=== PATIENT | female | born 1985 | race Caucasian/White ===

== ENCOUNTER 2022-11-21 07:50 | Observation (INO) ==
--- NOTE | 2022-11-18 09:46 | Anesthesiology Consultation ---
Date of Service November 18, 2022 Assessment & Plan (1) Encounter for pre-operative examination: - Check test AM DOS - COVID screening: Per assessment on 11/12: No known COVID-19 positive contacts or current COVID-19 related symptoms. Travel screen negative. Patient vaccinated. At surgeon discretion if preop Covid testing being done. Chart Review Chart Review: Acceptable Risk for Surgery and Patient NOT seen in Pre Admission Testing History Surgery Operation Date: 11/21/22 07:15 Proposed Procedures p Bilateral Mastectomies - Perry Thompson MD s Bilateral First Stage Immediate Reconstruction with Tissue Letter Of Credit Clerk and Acellular Dermal Matrix, Bilateral Alloderm - Patricia Mills MD Height/Weight Height: 5 ft 7.5 in Weight: 77.111 kg Allergies Allergy/AdvReac Type Severity Reaction Status Date / Time aluminum Allergy Mild itching Verified 11/12/22 11:14 nickel Allergy Mild Rash Verified 11/12/22 11:14 Medications Home Medications Medication Instructions Recorded Confirmed Last Taken cephalexin 500 mg capsule 500 mg PO TID #14 caps 11/01/22 11/01/22 Unknown oxycodone-acetaminophen 5 mg-325 1 tab PO Q4H PRN pain #18 tabs 11/01/22 11/01/22 Unknown mg tablet (Endocet) Past Medical History Medical History History of COVID-19 05/2020- loss of smell, "mild cold" symptoms > resolved Metastatic breast cancer Right, diagnosis 04/2022 Port-A-Cath in place placed 05/2022, [facility] Past Family History Family History Other No family history of adverse response to anesthesia Past Surgical History Surgical History History of breast biopsy History of lymph node biopsy History of removal of cyst x2 History of wisdom tooth extraction Hx of lymph node excision Social History Smoking Status: Former smoker tobacco type: cigarettes Do You Dip or Chew Tobacco: No Smoking End Date: years ago Hx Alcohol Use: Yes alcohol intake frequency: holidays/special occasions only Hx Substance Use: No substance use type: does not use Testing Laboratory Results 11/15/22 WBC 4.00 H/H 12.7/37.9 PLATELETS 212 SODIUM 140 POTASSIUM 4.4 CHLORIDE 104 CO2 27 BUN 18 CREATININE 0.8 GLUCOSE 96 PT 12.9 INR 1.0 Chest X-Ray Date: 05/13/22 Status post placement of a left subclavian Vnadfc-d-Fxvz catheter distal tip projected over the mid SVC. No postprocedural pneumothorax. Echocardiogram Date: 05/09/22 LVEF 64%. LV wall motion is normal. No significant valvular disease.
[~2022-11-21 07:50] MED LIST: BUPIVACAINE 0.25% PF 30 ML VIAL ONE; GENTAMICIN SULFATE 40 MG/ML 2 ML VIAL ONE; HYDROmorphone INJ 2 MG/ML SYR/VIAL ONE; LIDOCAINE 1%/EPINEPHRINE 1:100,000 20 ML VIAL ONE; LIDOCAINE 2% 2 ML VIAL/AMP(20MG/ML) INFIL ONE; LR 15ML/HR IV SCH; MIDAZOLAM HCL 1 MG/ML 2ML VIAL ONE; PROPOFOL IV EMULSION 10 MG/ML 100 ML VIAL IV ONE; PROPOFOL IV EMULSION 10 MG/ML 20 ML VIAL IV ONE; SODIUM CHLORIDE 0.9% PF INJ 10 ML VIAL ONE; SUCCINYLCHOLINE 100MG/5ML SYR IV ONE; ceFAZolin 330 MG/ML 1 GM VIAL ONE
--- NOTE | 2022-11-21 09:09 | History & Physical Bridge Note ---
Date of Service November 21, 2022 History & Physical Bridge Note I have examined the patient, reviewed the History & Physical and in the interval since the performance of the History & Physical I have noted the following changes of clinical significance: no changes noted
[2022-11-21] MEDS ORDERED: BUPIVACAINE/EPINEPHRINE 0.5% MPF 1:200,000 30 ML VIAL ONE (09:23)
[2022-11-21] MEDS ORDERED: BUPIVACAINE LIPOSOME 1.3% 266 MG/20 ML VIAL ONE (09:24)
[2022-11-21] MEDS ORDERED: METHYLENE BLUE 0.5% 10 ML VIAL ONE (09:24)
[2022-11-21] MEDS ORDERED: ATROPINE SULFATE 0.1 MG/ML 10ML SYR IV PRN (09:29)
[2022-11-21] MEDS ORDERED: PROMETHAZINE HCL 6.25 MG in SODIUM CHLORIDE 0.9% 50 ML IV PRN (09:29)
[2022-11-21] MEDS ORDERED: ONDANSETRON INJ 2 MG/ML 2 ML VIAL IV PRN ×2 (09:29→17:52)
[2022-11-21] MEDS ORDERED: HYDROmorphone INJ 1 MG/ML SYRINGE IV PRN (09:31)
[2022-11-21] MEDS: ENOXAPARIN INJ 30 MG/0.3 ML SYR SQ SCH (09:51)
[2022-11-21] MEDS: ceFAZolin 2000MG 2,000 MG/15 ML SYR IV SCH ×3 (10:04→21:27)
[2022-11-21] MEDS ORDERED: KETAMINE 50 MG/5 ML SYRINGE ONE (10:13)
[2022-11-21] MEDS ORDERED: BUPIVACAINE 0.5 % 5 MG/1 ML MPF 30ML VIAL ONE (10:28)
[2022-11-21] MEDS ORDERED: ROCURONIUM BROMIDE 10 MG/ML 5 ML VIAL IV ONE ×2 (10:34→13:26)
[2022-11-21] MEDS ORDERED: ePHEDrine sulfate 50 MG/ML AMP ONE (11:11)
--- NOTE | 2022-11-21 11:20 | Nuclear Medicine Report ---
LYMPHOSCINTIGRAPHY CLINICAL HISTORY: Right-sided breast cancer. PROCEDURE: Using standard sterile technique, 4 intradermal and one deep injection of 490.33 uCi of Ly mphoseek was placed in the right breast. The patient tolerated the procedure well. There were no imme diate complications. The patient was subsequently transported to the surgical suite. No imaging was o btained at the referring physician's request. IMPRESSION: Injection of Lymphoseek in the right breast. ACT 112: Negative or not required by law. Electronically signed by: John Puente M.D. 11/21/2022 11:18 AM
[2022-11-21] MEDS ORDERED: ceFAZolin 330 MG/ML 1 GM VIAL ONE (13:39)
--- NOTE | 2022-11-21 13:45 | Post Operative Brief Note ---
Immediate Post Op Note v1 Date of Surgery November 21, 2022 Pre & Post Diagnosis Operation Date: 11/21/22 10:00 Pre-Op Diagnosis: Right breast cancer with right axillary metastasis Post-Op Diagnosis: Right breast cancer with right axillary metastasis I identified the patient and participated in the time-out.: Yes Procedure Operation Date: 11/21/22 10:00 Actual Procedures p Bilateral Mastecomy and Right Axillary [place] Lymph Node Biopsy, SELINA Customer Relations Specialist Localized, Lymph Node Excision(Bilateral) - Perry Thompson MD s Bilateral First Stage Immediate Breast Reconstruction with Tissue Pneudraulic Systems Mechanic and Acellular Dermal Matrix(Bilateral) - Patricia Mills MD Surgeon Perry Thompson MD Broker Associate ROHIT Pardo assisted with tissue retraction, camera op, closure Estimated Blood Loss 15 Findings Consistent with Post-Op Diagnosis Drains Zepeda Catheter
--- NOTE | 2022-11-21 14:00 | Operative Report ---
Post Operative Report Pre & Post Diagnosis Operation Date: 11/21/22 10:00 Pre-Op Diagnosis: Right breast cancer with right axillary metastasis Post-Op Diagnosis: Right breast cancer with right axillary metastasis I identified the patient and participated in the time-out.: Yes Procedure Operation Date: 11/21/22 10:00 Actual Procedures p Bilateral Mastecomy and Right Axillary [place] Lymph Node Biopsy, SELINA Director Of Guidance Localized, Lymph Node Excision(Bilateral) - Perry Thompson MD s Bilateral First Stage Immediate Breast Reconstruction with Tissue Explosive Ordnance Handler and Acellular Dermal Matrix(Bilateral) - Patricia Mills MD Surgeon Perry Thompson MD Adon ROHIT Pardo assisted with tissue retraction, camera op, closure Estimated Blood Loss 15 Findings Consistent with Post-Op Diagnosis Right axillawire localization of prior biopsied node also appeared to be sentinel node; removed. Selina paper stacker localization of large level 2 right axillary node. Large mass right upper outer quadrant near axilla, completely resected with right mastectomy. Specimens 1. Left mastectomy 2. Right mastectomy 3. Right sentinel lymph node x1, hot and blue, wire within node 4. Right sentinel lymph node x2, blue 5. Right axillary level 2 lymph node, Selina Director Of Guidance localized Anesthesia Type General Complications No immediate complications Description of Procedure Patient taken to the operating room, placed supine on the operating table. A ti meout was performed, perioperative antibiotics were administered, SCD boots were placed. Subcutaneous Lovenox had been given in preoperative area. After adequate anesthesia and analgesia was obtained, Zepeda catheter was placed, and the patient was prepped and draped in the normal sterile fashion. 5 cc of methylene blue were injected around the right nipple areolar complex and was massaged into the breast. The incision lines had been drawn on the bilateral breast in the preoperative area. We began on the left side. Local anesthetic, a mix of half percent Marcaine, Exparel, and saline, was injected into the subcutaneous tissue of the skin of the left breast. Incision was made with 15 blade scalpel encompassing the incision that had been drawn. This included the nipple areolar complex. Dissection was taken down into the level of the breast tissue. Flaps were raised in a 360 degree fashion using a traction countertraction technique. This was done with the electrocautery. Larger blood vessels were taken with the LigaSure device. 1 liberal arts and humanities chair was clamped and tied with a 3-0 silk suture. All the breast tissue was removed from the overlying subcutaneous tissue. The extent of the dissection was superiorly to the clavicle, medially to the sternum, inferiorly to the fascia of the rectus abdominis, and laterally to the axillary fat pad. The breast was then removed from the underlying pectoralis major muscle with the electrocautery, taking care to remove the fascia of the pectoralis muscle with it. The mastectomy specimen was oriented with sutures and ink and was sent off the field. The flaps were then inspected. Some additional breast tissue was removed on the upper flap and an area of thicker tissue. This was sent off with the specimen. More of the local anesthetic mix was injected into the pectoralis muscle. Attention was turned to hemostasis, which was excellent. Wet lap sponges were placed in the wound, and attention was turned to the right side. Attention was then turned to the right side. The local anesthetic mix was injected into the subcutaneous tissue of the skin of the right breast. Again incision was made with 15 blade scalpel following lines of the previously drawn incision. Again this included the nipple areolar complex as well as the skin directly overlying the firm mass in the upper outer quadrant. The level of the breast tissue was obtained. Using a traction, countertraction technique and the Bovie electrocautery, flaps were raised in a 360 degree fashion. Again, larger blood vessels were taken with the LigaSure device, and perforators were clamped and tied with 3-0 silk suture. Once we finished the upper and lateral flap, we turned our attention to the right axilla. Using the neoprobe, we were able to identify the sentinel lymph node. The wire which was entering from the lateral aspect of the chest wall was noted to be going into the area of the sentinel node. The sentinel node was dissected free circumferentially and removed. The lymphatics were clamped and taken with the LigaSure device. The sentinel lymph node measured 330. 1 further sentinel lymph node was identified as being blue. This was removed and sent off the field as well. The background count was 20. We then used the Selina paper stacker device to find the level 2 lymph node. This lymph node was deeper and was visibly enlarged and irregular. It was dissected free circumferentially with combination of the Bovie electrocautery and the LigaSure device. It was removed and sent off field for specimen. Care was taken to avoid any injury to the blood vessels and nerves in the deep axilla. Attention was turned to hemostasis here which was excellent. We then proceeded with the mastectomy. The inferior and medial flaps were raised. Again the extent of the dissection was superiorly to the clavicle, medially to the sternum, inferiorly to the fascia of the rectus abdominis, and laterally to the axillary fat pad. The breast was then removed from the underlying pectoralis major muscle with the electrocautery, taking care to remove the fascia of the pectoralis muscle with it. Again, the mastectomy specimen was oriented with sutures and ink and was sent off the field. Again the flaps were inspected and some additional breast tissue was removed on both flaps in the lateral aspect where the mass had been. This additional breast tissue was sent off of the specimen. The final local anesthetic mix was injected into the pectoralis muscle. Attention was turned hemostasis again which was excellent. Wet lap sponges were placed in the wound. The case was then turned over to Dr. Mills of plastic surgery for the placement of expanders. The details of this will be dictated in a separate operative note. My assistant news director was necessary throughout the procedure for tissue retraction, possible camera operation, and closure of the wounds. I understand that section 1842(b)(7)(D) of the Social Security act generally prohibits Medicare physician fee schedule payment for the services of assistants at surgery in teaching hospitals when qualified residents are available to furnish such services. I certify that the services for which payment is claimed were medically necessary and that no qualified resident was available to perform the services. I further understand that these services are subject to postpayment review by the Medicare carrier. I attest to the content of the Intraoperative Record and any orders documented therein. Any exceptions are noted below.
--- NOTE | 2022-11-21 14:56 | Mammography Report ---
SPECIMEN: 11/21/2022 CLINICAL HISTORY: Status post right axillary surgical excision. COMPARISON: Comparison is made to exams dated: 11/21/2022 localization, 11/21/2022 mammogram, localization, 11/11/2022 ultrasound - [facility], and 06/12/2022 ultrasound biopsy. Findings: Radiographs were performed of the 2 right axillary surgical specimens. One specimen contai ns a lymph node with associated Swetha travel nurse reflector. The other specimen contains a lymph node with associated biopsy clip centrally within the specimen. The intact localization wire is also present. Results were relayed to the operating room over the telephone. IMPRESSION: SPECIMEN The imaged specimens contain the two localized lymph nodes with associated biopsy clip and reflector. Sonia Xiong M.D. /:11/21/2022 12:53:14 Geriatrics Physician: OR Technologist, [facility]
--- NOTE | 2022-11-21 14:56 | Mammography Report ---
NEEDLE LOCALIZATION RIGHT BREAST: 11/21/2022 CLINICAL HISTORY: Biopsy-proven right axillary tracy metastasis. Also a deeper right axillary lymph n ode which is hypermetabolic on PET/CT. The patient presents for preoperative localization. COMPARISON: Comparison is made to exams dated: 11/21/2022 mammogram, 11/21/2022 localization, ultrasound - [facility], 06/12/2022 ultrasound biopsy, 06/12/2022 ultrasound, and 1 06/19/2021 ultrasound biopsy. PROCEDURE DESCRIPTION: The procedure and risks of Swetha Cap And Hat Production Supervisor and wire localization were discussed wit h the patient and informed written consent was obtained. Preprocedural ultrasound demonstrates a 2.3 x 1.4 cm lymph node posteriorly which will be the target for Swetha painter tumbling barrel localization. Another lymph node is seen more anteriorly which contains an echogenic biopsy clip and is consistent with the biop sy-proven tracy metastasis. This will be the target for wire localization. The skin of the right axilla was cleaned with Betadine and draped with sterile towels. The skin was anesthetized with 1% lidocaine and the deeper parenchymal tissues were anesthetized with 1% lidocaine with epinephrine. A tiny skin incision was made. With ultrasound guidance, a 22-gauge Swetha painter tumbling barrel c annula needle was placed into the larger posterior right axillary lymph node. Once the needle was in good position, the Swetha painter tumbling barrel reflector was unsheathed. The reflector is shown to be located within the posterior right axillary lymph node on ultrasound images. Immediately after this, a 5 cm Hawkin s II needle was placed into the more anterior lymph node which contains a biopsy clip. Once the need le was in good position, the wire was deployed and the needle was removed. The distal aspect of the localization wire is shown to be within the lymph node. The patient tolerated the procedure without complication. A probe was placed on the skin and a spotty signal was detected from the reflector. A marker was placed on the skin with a marker to denote the site of the localized lymph nodes. Postp rocedure right MLO images were obtained, which shows the localization wire to be within the lymph nod e, with biopsy clip located at the level of the shaila of the wire. The reflector could not be visuali zed mammographically due to the far posterior location. IMPRESSION: NEEDLE LOCALIZATION Ultrasound-guided Swetha painter tumbling barrel localization of the posterior right axillary lymph node, and ultrasound- guided wire localization of the more anterior right axillary lymph node which contains a biopsy clip. Sonia Xiong M.D. ah/:11/21/2022 09:01:08 Attending Technologist: RT Mor(R)(M), [facility] Multi Punch Operator: Sonia Xiong MD, [facility]
--- NOTE | 2022-11-21 14:56 | Mammography Report ---
NEEDLE LOCALIZATION RIGHT BREAST: 11/21/2022 CLINICAL HISTORY: Biopsy-proven right axillary tracy metastasis. Also a deeper right axillary lymph n ode which is hypermetabolic on PET/CT. The patient presents for preoperative localization. COMPARISON: Comparison is made to exams dated: 11/21/2022 mammogram, 11/21/2022 localization, ultrasound - [facility], 06/12/2022 ultrasound biopsy, 06/12/2022 ultrasound, and 1 06/19/2021 ultrasound biopsy. PROCEDURE DESCRIPTION: The procedure and risks of Swetha Search Consultant and wire localization were discussed wit h the patient and informed written consent was obtained. Preprocedural ultrasound demonstrates a 2.3 x 1.4 cm lymph node posteriorly which will be the target for Swetha vice president process localization. Another lymph node is seen more anteriorly which contains an echogenic biopsy clip and is consistent with the biop sy-proven tracy metastasis. This will be the target for wire localization. The skin of the right axilla was cleaned with Betadine and draped with sterile towels. The skin was anesthetized with 1% lidocaine and the deeper parenchymal tissues were anesthetized with 1% lidocaine with epinephrine. A tiny skin incision was made. With ultrasound guidance, a 22-gauge Swetha vice president process c annula needle was placed into the larger posterior right axillary lymph node. Once the needle was in good position, the Swetha vice president process reflector was unsheathed. The reflector is shown to be located within the posterior right axillary lymph node on ultrasound images. Immediately after this, a 5 cm Hawkin s II needle was placed into the more anterior lymph node which contains a biopsy clip. Once the need le was in good position, the wire was deployed and the needle was removed. The distal aspect of the localization wire is shown to be within the lymph node. The patient tolerated the procedure without complication. A probe was placed on the skin and a spotty signal was detected from the reflector. A marker was placed on the skin with a marker to denote the site of the localized lymph nodes. Postp rocedure right MLO images were obtained, which shows the localization wire to be within the lymph nod e, with biopsy clip located at the level of the shaila of the wire. The reflector could not be visuali zed mammographically due to the far posterior location. IMPRESSION: NEEDLE LOCALIZATION Ultrasound-guided Swetha vice president process localization of the posterior right axillary lymph node, and ultrasound- guided wire localization of the more anterior right axillary lymph node which contains a biopsy clip. Sonia Xiong M.D. ah/:11/21/2022 09:00:22 Attending Technologist: RT Mor(Kalina)(M), [facility] Administrative Executive: Sonia Xiong MD, [facility]
--- NOTE | 2022-11-21 14:56 | Mammography Report ---
SPECIMEN RIGHT BREAST: 11/21/2022 CLINICAL HISTORY: Status post surgical excision of right axillary lymph nodes. COMPARISON: Comparison is made to exams dated: 11/21/2022 localization, 11/21/2022 mammogram, 3 localization, 11/11/2022 ultrasound - [facility], and 06/12/2022 ultrasound biopsy. Findings: Radiographs were performed of the 2 right axillary surgical specimens. One specimen contai ns a lymph node with associated Swetha skein spooler reflector. The other specimen contains a lymph node with associated biopsy clip centrally within the specimen. The intact localization wire is also present. Results were relayed to the operating room over the telephone. IMPRESSION: SPECIMEN The imaged specimens contain the two localized lymph nodes with associated biopsy clip and reflector. Sonia Xiong M.D. /:11/21/2022 12:52:34 Annealing Oven Operator: OR Technologist, [facility]
--- NOTE | 2022-11-21 14:59 | Mammography Report ---
UNILATERAL RIGHT DIGITAL DIAGNOSTIC MAMMOGRAM TOMOSYNTHESIS WITH SYNTHETIC 2D POST PROCEDURE IMAGING FOR MARKER PLACEMENT: 11/21/2022 CLINICAL HISTORY: Status post Swetha district manager in training and wire localization of right axillary lymph nodes. TECHNIQUE: Right MLO tomosynthesis images including synthesized 2D images (Intelligent 2D) were obtai castro. COMPARISON: Comparison is made to exams dated: 04/17/2022 mammogram, 11/21/2022 localization, 11/12/19 ultrasound - [facility], 06/12/2022 ultrasound biopsy, and 06/12/2022 ultrasound. BREAST COMPOSITION: The right breast is extremely dense, which lowers the sensitivity of mammography. FINDINGS: Post procedure right MLO images were obtained after ultrasound-guided localization. The distal aspec t of the localization wire is located within the lymph node, with biopsy clip seen at the level of th e shaila of the wire. The Swetha district manager in training reflector could not be visualized mammographically due to the far posterior location. Mass with associated biopsy clip is again noted within the right superior breas t. IMPRESSION: POST PROCEDURE IMAGING FOR MARKER PLACEMENT The localization wire is located within the localized right axillary lymph node, with clip located ad jacent to the shaila of the wire. Some breast cancers are not detected with mammography. A negative mammographic report should not saundra y biopsy if a clinically suggestive mass is present. Sonia Xiong M.D. ah/:11/21/2022 09:03:32 Door Machine Operator: RT Mor(R)(M), [facility] BI-RADS Code: Post Procedure Imaging For Marker Placement
[2022-11-21] MEDS ORDERED: ONDANSETRON INJ 2 MG/ML 2 ML VIAL ONE (15:44)
[2022-11-21] MEDS ORDERED: NEOSTIGMINE METHYLSULFATE 1 MG/ML 10ML VIAL ONE (15:44)
[2022-11-21] MEDS ORDERED: GLYCOPYRROLATE 0.2 MG/ML VIAL ONE (15:44)
[2022-11-21] MEDS ORDERED: HYDROmorphone INJ 2 MG/ML SYR/VIAL ONE (15:50)
--- NOTE | 2022-11-21 16:01 | Post Operative Brief Note ---
PG Immediate Post Op with CF Date of Surgery November 21, 2022 Pre & Post Diagnosis Operation Date: 11/21/22 10:00 Pre-Op Diagnosis: Right breast cancer with right axillary metastasis Post-Op Diagnosis: Right breast cancer with right axillary metastasis I identified the patient and participated in the time-out.: Yes Procedure Operation Date: 11/21/22 10:00 Actual Procedures p Bilateral Mastecomy and Right Axillary [place] Lymph Node Biopsy, SELINA Manager Field Sales Localized, Lymph Node Excision(Bilateral) - Perry Thompson MD s Bilateral First Stage Immediate Breast Reconstruction with Tissue Forestry Consultant and Acellular Dermal Matrix(Bilateral) - Patricia Mills MD Surgeon Patricia Mills MD Replanting Machine Operator Naomi Perez AFlorentin Estimated Blood Loss 25 Findings Consistent with Post-Op Diagnosis Specimens Specimen Description: A. Left Breast, short stitch superior, long stitch lateral, ink margin deep weight- 698 g B. Right [place] Lymph Node, neoprobe 329 C. Deep Level 2 Node with Selina Manager Field Sales Right Breast D. [place] Node Blue Right Breast E. Right Breast, short stitch superior, long stitch lateral, ink margin deep weight- 836 g Drains Zepeda Catheter Anesthesia Type General Complications none
--- NOTE | 2022-11-21 16:21 | Operative Report ---
PG Post Operative Report Pre & Post Diagnosis Operation Date: 11/21/22 10:00 Pre-Op Diagnosis: Right breast cancer with right axillary metastasis Post-Op Diagnosis: Right breast cancer with right axillary metastasis I identified the patient and participated in the time-out.: Yes Procedure Operation Date: 11/21/22 10:00 Actual Procedures p Bilateral Mastecomy and Right Axillary [place] Lymph Node Biopsy, SELINA Invasive Cardiologist Localized, Lymph Node Excision(Bilateral) - Perry Thompson MD s Bilateral First Stage Immediate Breast Reconstruction with Tissue Culinary Director and Acellular Dermal Matrix(Bilateral) - Patricia Mills MD Surgeon Patricia Mills MD Death Claim Clerk Naomi Solorio Estimated Blood Loss 25 Findings Consistent with Post-Op Diagnosis Specimens none Drains JPx2 Anesthesia Type General Complications none Indications 37 year old female, metastatic breast CA s/p neoadjuvant chemo desiring breast reconstruction. Tissue expanders to be placed prior to radiation to allow for eventual flap reconstruction Description of Procedure The risks, benefits, alternatives the procedure were explained to the patient agreed and signed consent. Plan was for stage immediate breast reconstruction with tissue machine feeder and AlloDerm in preparation for postoperative radiation and placeholder for likely referral for BIBIANA flap at a later stage. I entered the operating room after Dr. Thompson had completed his portion of the procedure. Surgical site was again prepped with Betadine, sterile drapes were placed. New timeout procedure was performed. Skin flaps were noted to be viable bilaterally. I began with the left side. Lap sponges were removed. Hemostasis was achieved with electrocautery. I did opt to place the machine feeder in a dual plane/subpectoral location due to tumor location, size, and need for postoperative radiation. Pectoralis major muscle was then identified and elevated. Inferior attachments of pectoralis major muscle were divided along the ribs medially to the sternum. None of the sternal attachments were dissected. The retropectoral plane was then developed using electrocautery. Hemostasis was achieved using cautery. Once adequate dissection had been performed, I then chose a piece of medium contour thick AlloDerm which was then used to create a sling for the lower pole. This was first sutured to the inframammary fold using 2-0 Vicryl U stitches. Pocket was then measured and base diameter was 13 cm. Therefore, I selected a [employer] style 133S MVT tissue machine feeder with base diameter of 13 cm. The machine feeder was prepared and air was aspirated out. The pocket was irrigated first with saline to evaluate for hemostasis, followed by Vashe wash. Antibiotic soaked lap sponges were placed in the pocket on the left while I raised the right pectoralis muscle and sutured AlloDerm in place on the right. The machine feeder was soaked in antibiotic irrigation and antibiotic irrigation was used to irrigate the pocket. All instruments were wiped down and gloves were changed. Culinary Director was placed along the inframammary fold as medially as possible. Suture tabs were sutured down to underlying periosteum using a 2-0 Vicryl suture. The remainder of the machine feeder was then enclosed using 2-0 Vicryl running suture to reapproximate the AlloDerm which had been trimmed to size and this was approximated to the pectoralis major muscle. Laterally, this was closed down using 2-0 Vicryl interrupted sutures as well. A 15-[place] Iban drain was placed in the wound and brought out through a separate stab incision. Prior to reapproximating the wound the fill port was identified using the magna-finder and accessed using a Fourte needle. A total of 250 mL were placed prior to closure. An identical procedure was performed on the right side. Wounds were reapproximated using 2-0 Vicryl deep dermal suture, 3-0 PDS superficial dermal suture and 3-0 Monocryl running subcuticular suture. Drain was sutured in place using 3-0 nylon. Provena Brianne dressings were unavailable and therefore I did opt to place a 20 cm Prevena dressing to each incision. The drain site was dressed using Acticoat dry dressing and Tegaderm. Procedure was tolerated well. Naomi Perez PA-C was present and scrubbed throughout the entire procedure and was instrumental in providing exposure during elevation of pectoralis muscle and suturing of the AlloDerm as well as filling expanders and assisting in wound closure. I attest to the content of the Intraoperative Record and any orders documented therein. Any exceptions are noted below.
--- NOTE | 2022-11-21 17:39 | Anesthesiology Progress Note ---
Date of Service November 21, 2022 Anesthesia Post Procedure Vital Signs Vital Signs: Temp Pulse Pulse Resp BP Pulse Ox O2 Del Method 11/21/22 17:30 102 H 17 111/62 96 Nasal Cannula 11/21/22 17:15 92 H 21 114/63 96 Nasal Cannula 11/21/22 17:05 95 H 17 117/59 L 97 Nasal Cannula 11/21/22 16:55 98.8 F 104 H 16 115/62 96 Nasal Cannula 11/21/22 16:45 110 H 23 127/66 95 Nasal Cannula 11/21/22 16:35 100 H 12 117/60 96 Nasal Cannula 11/21/22 16:25 105 H 20 116/61 95 Nasal Cannula 11/21/22 16:16 97.9 F 101 H 15 113/60 95 Nasal Cannula 11/21/22 09:26 98.2 F 73 18 126/60 100 Room Air O2 Flow Rate 11/21/22 17:30 2 11/21/22 17:15 2 11/21/22 17:05 2 11/21/22 16:55 2 11/21/22 16:45 4 11/21/22 16:35 4 11/21/22 16:25 4 11/21/22 16:16 4 11/21/22 09:26 Transfer of Care Handoff Completed per policy Notes Mental Status: alert / awake / arousable and participated in evaluation Patient Amnestic to Procedure: Yes Nausea / Vomiting: adequately controlled Pain: adequately controlled Airway Patency, RR, SpO2: stable & adequate BP & HR: stable & adequate Hydration State: stable & adequate Anesthetic Complications: no major complications apparent and Pt Satisfied with anesthetic care
[2022-11-21] MEDS ORDERED: MoRPHine SULFATE 4 MG/ML 1 ML CARP\\VIAL IV PRN (17:52)
[2022-11-21] MEDS ORDERED: MoRPHine SULFATE 2 MG/ML CARP IV PRN (17:52)
[2022-11-21] MEDS ORDERED: diphenhydrAMINE Capsule 25 MG CAP PO PRN (17:52)
[2022-11-21] MEDS ORDERED: PROMETHAZINE HCL 12.5 MG in SODIUM CHLORIDE 0.9% 50 ML IV PRN (17:52)
[2022-11-21] MEDS ORDERED: oxyCODONE/ACETAMINOPHEN 5mg/325mg TAB PO PRN ×2 (17:52)
[2022-11-21] MEDS ORDERED: diphenhydrAMINE 50 MG/ML VIAL IV PRN (17:52)
[2022-11-21] MEDS ORDERED: LORazepam 0.5 MG TAB PO PRN (17:52)
[2022-11-21] MEDS: ACETAMINOPHEN 325 MG TAB PO PRN (21:12)
[2022-11-21] MEDS: D5W AND 1/2NSS + 20MEQ KCL 20 MEQ/1,000 ML BAG IV SCH (21:27)
[2022-11-22] MEDS: ceFAZolin 2000MG 2,000 MG/15 ML SYR IV SCH (05:16)
[2022-11-22] MEDS: ACETAMINOPHEN 325 MG TAB PO PRN (05:16)
[2022-11-22] MEDS: ENOXAPARIN INJ 30 MG/0.3 ML SYR SQ SCH (06:46)
[2022-11-22] MEDS: D5W AND 1/2NSS + 20MEQ KCL 20 MEQ/1,000 ML BAG IV SCH (08:17)
[2022-11-22] MEDS ORDERED: MULTIVITAMIN TAB PO SCH (09:00)
--- NOTE | 2022-11-22 09:05 | Surgery Progress Note ---
Date of Service November 22, 2022 Assessment & Plan (1) Metastatic breast cancer: (2) S/P mastectomy, bilateral: (3) Encounter for breast reconstruction following mastectomy: Plan: Patient doing well. D/C home this AM, office followup in 6 days to remove wound vacs. Post-op restrictions reviewed Admission and Anticipated Discharge Date Admission Date: November 21, 2022 Subjective Gorge is feeling well, has good pain control. Zepeda removed and she has ambulated to the bathroom to void. She is tolerated regular diet. Physical Exam Physical Exam: prevena wound vacs holding suction, drains with 15 c serosang output Results & Data Vital Signs (Past 12 Hours) Vital Signs Temp Pulse Resp BP Pulse Ox O2 Del Method 11/22/22 08:47 36.8 C 69 16 117/71 98 11/22/22 07:21 36.8 C 69 16 117/71 98 Room Air 11/22/22 05:08 36.8 C 74 18 114/66 96 Room Air 11/22/22 00:54 36.9 C 67 18 119/79 98 Room Air PG Care Time/CCT Total # of Minutes Spent Total Time Spent with Patient: Total time spent is greater than 50% in coordination of care (as documented) at patient's floor/unit and/or counseling patient: Coding Level of Care Code 27480 Post Operative Follow-Up Diagnoses Metastatic breast cancer C50.919 S/P mastectomy, bilateral Z90.13 Encounter for breast reconstruction following mastectomy Z42.1
--- NOTE | 2022-11-25 12:53 | Discharge Summary ---
Date of Service November 25, 2022 Admission HPI Per Admitting Provider History of right breast cancer Admission Exam Per Admitting Provider see admission H&P Principal Diagnosis metastatic breast cancer Discharge Exam prevena wound vacs holding suction, drains with 15 c serosang output Discharge Data Allergies Allergy/AdvReac Type Severity Reaction Status Date / Time aluminum Allergy Mild itching Verified 11/21/22 09:05 nickel Allergy Mild Rash Verified 11/21/22 09:05 Procedures Performed Operation Date: 11/21/22 10:00 Actual Procedures p Bilateral Mastecomy and Right Axillary [place] Lymph Node Biopsy, SELINA Medical Practice Assistant Localized, Lymph Node Excision(Bilateral) - Perry Thompson MD s Bilateral First Stage Immediate Breast Reconstruction with Tissue Valet Parking Attendant and Acellular Dermal Matrix(Bilateral) - Patricia Mills MD Ordered Studies 11/21/22 05:00 US - OR guided needle placemen Routine 11/21/22 08:00 US breast needle loc SELINA RT Routine US breast needle loc wire RT Routine Hospital Course (1) Encounter for breast reconstruction following mastectomy: Patient presented to [facility] with history of breast cancer. She was taken to the OR and underwent bilateral mastectomy with Dr. Thompson and immediate breast reconstruction using tissue expanders and acellular dermal matrix with Dr. Mills. There were no intraoperative complications. She was taken to recovery and transferred to med/surg for observation. On POD#1, she was feeling well. She was tolerating a regular diet and ambulating. On exam, her vitals were stable. Her incisions were CDI. Her drains had appropriate output. She was discharged ho az with instructions to follow-up in the office in one day. (2) Metastatic breast cancer: Total Time Total Time Spent Total Time Spent (In Minutes): 15 Discharge Plan Discharge Items Patient Disposition: Home - Self-Care Reason For Visit: POST-OP Discharge Diagnosis: s/p bilateral mastectomy, immediate reconstruction Activity: As commented below Non-emergency contact: Surgeon Call non-emergency contact if: you have any medication questions, your pain is worsening, you have a fever and your wound has increased redness Follow-up/Referrals: Naomi Perez PA-C [[facility]] - Maria Victoria Driscoll, [Primary Care Provider] - Diet: Regular Addtl Attending Provider Instructions: ACTIVITY RECOMMENDATIONS: __Normal activities _x_No bending, lifting or straining. Keep arms at shoulder height or below __No driving __Driving allowed when you are off pain medications _x_Walking permitted __You should have help at home for ___ days DRESSINGS: __No dressings required _x_Keep dressings dry/in place until first office visit __Remove dressings ___ and leave dressings off __Apply ice ___ days __Remove dressings and reapply garment __Apply antibiotic ointment (Bacitracin, Neosporin, etc) to wounds 3-4 times/day for 10 days BATHING: _x_Keep dressings dry _x_Sponge bathing permitted __Showering permitted _x_No swimming, hot tubs or soaking in a tub MEDICATIONS: Resume previous medications unless instructed otherwise by your surgeon. _x_Do not use aspirin, Motrin, Advil or Ibuprofen as these may promote bleeding. Please use Tylenol. _x_Prescription(s) provided: antibiotics and pain medication were provided at your last office visit OTHER INSTRUCTIONS: _x_Record drain output 2-3 times per day SPECIAL CARE INSTRUCTIONS: * It is normal to have a mild fever after surgery. If your temperature is higher than 101.5 degrees F, please call the office at [phone]. * Constipation is a typical side effect of pain medication. An [id number]-pys-zswhytb stool softener will help relieve this. * Leaking around surgical drains may occur and should not cause concern. Sometimes these drains become clogged. If this happens, remove the bulb and milk the clot out of the tube, then replace the bulb. * Drainage from wounds after liposuction is normal and should be expected. Garments will become soiled. You should protect furniture and bedding. This drainage should mostly subside within 2-3 days. Leave garments in place unless instructed to remove them. * If you have unusual drainage from a wound or are concerned you have an infection or have any questions or concerns, please call the office at [phone]. FOLLOW UP VISIT: If not already scheduled, please call the office, , when you return home after surgery to schedule an appointment to be seen in __6_ days. Pending Studies at Discharge: Yes Stand-Alone Forms: [facility], Pain - Opioid Pain Management, Smoking Cessation Medications and DC Order Prescriptions: Continued oxycodone-acetaminophen [Endocet] 5-325 mg tablet 1 tab PO Q4H PRN (Reason: pain) Qty: 18 0RF Rx Instructions: initial therapy Dr. Mills [id number] cephalexin 500 mg capsule 500 mg PO TID Qty: 14 2RF Discharge Orders: Discharge Order (Routine); Ordered 11/22/22 Ordered By: Naomi Delatorre/Other Patient Handouts: DVT Post Op Prevention Admission Data Admit Date/Time: 11/21/22 16:01 Attending Provider: Perry Thompson Admit Provider: Patricia Mills Primary Care Provider: Maria Victoria Driscoll Other Interventions: Discharge Summary Assessment (RN) Last Done: 11/22/22 08:47 Coding Level of Care Code 06022 OBS Care - Discharge Diagnoses Encounter for breast reconstruction following mastectomy Z42.1 Metastatic breast cancer C50.919
== END 2022-11-22 09:52 | disposition home or self-care (01) ==
LOC: ASU 07:50 → 3E 07:50

== ENCOUNTER 2023-11-28 15:57 | Observation (INO) ==
--- NOTE | 2023-11-28 16:03 | ED Triage Note ---
Date of Service November 28, 2023 Provider in Triage Author: Raj Payton History of Present Illness This patient was briefly evaluated while in triage. An abbreviated physical exam was performed. This patient is a 38-year-old Female who presents to the ED for evaluation of: Currently have expanders in now. Had chemo yesterday. Woke up today and R anterior chest No pain at the present time. Mild fever recently. Physical Exam GENERAL: 38 year old female. In no acute distress. SKIN: No lesions or rashes. HEART: Regular rate and rhythm. LUNGS: Clear to auscultation. NEURO: Alert and oriented. No deficits. MUSCULOSKELETAL: No deformities to inspection of the extremities. PSYCH: Patient is pleasant and answers all questions appropriately. Initial orders for labs and / or imaging were placed and patient was placed in the waiting area until a bed is available. Please see further documentation for the full ED course.
[2023-11-28] MEDS ORDERED: VANCOMYCIN CONSULT ACTIVE PRN ×2 (17:14→18:09)
--- NOTE | 2023-11-28 17:19 | Emergency Department Note ---
Impression & Plan Cellulitis of right breast, Acute breast pain, Anemia ED Provider Note NAME: ANNA SERNA AGE: 38 SEX: F : 1985 ARRIVES VIA: Walk-In INFORMANT: Patient ED PROVIDER(S): Philippe Knapp DO CHIEF COMPLAINT: Failure of outpatient treatment HPI: Patient is a 38-year-old female with breast cancer underwent a mastectomy and has spacers in place. She notes that on Friday she started noticing redness and swelling in combination with pain. She was placed on Bactrim as well as Cipro. It was improving. She received chemo yesterday and now has worsened. She was seen evaluated and referred in for admission. Patient denies any headache or change in vision. No chest pain or shortness of breath. No nausea vomiting or diarrhea. No dysuria urgency or frequency. No other exacerbating or remitting factors. She notes the redness is tracking up to her neck. ADDITIONAL HISTORY OBTAINED: Per HPI Chronic Medical/Social Conditions Affecting Care: Per HPI PAST MEDICAL HISTORY:See Below PAST SURGICAL HISTORY:See Below FAMILY HISTORY:See Below SOCIAL HISTORY:See Below HOME MEDICATIONS:See Below ALLERGIES:See Below VITALS:See Below PHYSICAL EXAMINATION: GENERAL: Sitting up in bed, alert, well appearing, well nourished, no distress, non-toxic EYE EXAM: normal conjunctiva. OROPHARYNX: no exudate, no erythema, lips, buccal mucosa, and tongue normal and mucous membranes are moist NECK: supple, no nuchal rigidity, no adenopathy, non-tender LUNGS: Clear to auscultation. Normal chest wall mechanics HEART: no murmurs, S1 normal and S2 normal ABDOMEN: abdomen soft, non-tender, normo-active bowel sounds, no masses, no rebound or guarding. BACK: Back is symmetrical on inspection and there is no deformity, no midline tenderness, no CVA tenderness. SKIN: Erythema over the right breast tracking up to the anterior chest. UPPER EXTREMITIES: upper extremities are grossly normal. LOWER EXTREMITIES: No pitting edema. NEURO EXAM: Normal sensorium, cranial nerves II-XII grossly intact, normal speech, no gross weakness of arms, no gross weakness of legs. MEDICAL DECISION MAKING: Patient is a 38-year-old female referred in for treatment of cellulitis of her right breast that she has been on outpatient antibiotics and has failed as it is getting worse. IV was established medicals obtained. Labs show no significant leukocytosis. Mild anemia at 11. BMP along with LFTs shows a mild transaminitis. Patient was given Rocephin and IV vancomycin. She was updated bedside. Discussed case with the hospitalist for further evaluation management treatment. Consults/Care Managements Discussions: Per [facility] Triage Nursing notes reviewed. Limited review of prior medical records performed Vital Signs: reviewed and remarkable for no significant abnormalities Differential diagnosis: Cellulitis, abscess, MRSA infection, DVT, necrotizing fasciitis, dermatitis, drug eruption, allergic reaction, as well as other pathologies. ER treatment provided: See below Diagnostics interpreted by me include EKG and cardiac monitoring as listed below: -Cardiac Monitoring: An order was placed for continuous cardiac monitoring. The monitor shows a rate of 75 with sinus rhythm. -ECG: none -Laboratory studies:Interpreted by me as stated above in MDM and shown below. Imaging studies: Xrays: As interpreted by me:none CTs show: none Procedures:none Critical Care: None Past Med/Surg History Problem List (Updated 11/28/23 @ 21:19 by Philippe Knapp DO) Anemia (Acute) Acute breast pain (Acute) Cellulitis of right breast (Acute) Cellulitis Routine gynecological examination Current smoker Multiple pulmonary nodules Pre-op testing Malignant neoplasm of upper-outer quadrant of right breast in female, estrogen receptor positive (Chronic 04/19/22) Encounter for breast reconstruction following mastectomy S/P mastectomy, bilateral History of breast cancer surgery/radiation/chemo Metastatic breast cancer Right, diagnosis 04/2022>chemo therapy (every 3 weeks) spread to lungs/reason for chemo currently Medical History Port-A-Cath in place Surgical History History of lung biopsy History of breast biopsy (06/12/22) History of bilateral mastectomy (11/21/22) History of wisdom tooth extraction Hx of lymph node excision (2014) History of removal of cyst Family History Father No problems noted. Mother No problems noted. Sister No problems noted. Sister No problems noted. Aunt Breast cancer Brother No problems noted. Son No problems noted. 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 Beliefs That Will Affect Care: None marital status: Current Living Situation: Family Current Living Situation Comment: and son current occupational status: employed How many Children do You have: 1 Feels Safe at Home: Yes Childhood Exposure to Second-Hand Smoke: No Diet: regular caffeine: Yes during the past year weight has: remained stable Dental Care, Regularly: Yes Physical Activity Frequency: Daily Seatbelt Use: always Sunscreen Use: Yes Assistive Devices: Contacts and Glasses Allergies Allergies Allergy/AdvReac Type Severity Reaction Status Date / Time aluminum Allergy Mild itching Verified 11/27/23 08:06 nickel Allergy Mild Rash Verified 11/27/23 08:06 Home Meds Home Medications Medication Instructions Recorded Confirmed anastrozole 1 mg tablet 1 mg PO QAM 12/18/22 11/28/23 goserelin 3.6 mg subcutaneous 3.6 mg subcut Q28D 02/04/23 11/27/23 implant (Zoladex) zoledronic acid 4 mg/5 mL 4 mg IV .q 6 months 07/01/23 11/28/23 intravenous solution olanzapine 2.5 mg tablet 2.5 mg PO UD 11/28/23 11/28/23 Previous Rx's Medication Instructions Recorded ciprofloxacin HCl 250 mg tablet 250 mg PO BID 10 days #20 tabs 11/24/23 sulfamethoxazole 800 1 tab PO BID 10 days #20 tabs 11/24/23 mg-trimethoprim 160 mg tablet (Bactrim DS) Results & Data (ED) Vital Signs Vital Signs - 24 hr 11/28/23 16:01 11/28/23 16:53 11/28/23 17:54 Temperature 36.5 C Temperature Source Temporal Artery Scan Pulse Rate 77 68 Pulse Rate [Finger] 64 Pulse Rate [Left Apical] Respiratory Rate 20 18 14 Respiratory Effort / Characteristics Non-Labored Spontaneous Respiratory Depth Normal Respiratory Pattern Regular Blood Pressure 122/78 Blood Pressure [Left Arm] 119/76 Blood Pressure Mean 92 Blood Pressure Mean [Left Arm] 90 Blood Pressure Position [Left Arm] Semi-fowlers Pulse Oximetry 100 100 Oxygen Delivery Method Room Air Room Air Room Air Sepsis Recent Fever Within 48 Hours No Sepsis New/Unexplained Change in Mental Status N/A Sepsis Action Taken by Nursing No Action Required 11/28/23 17:54 11/28/23 18:15 11/28/23 19:08 Temperature Temperature Source Pulse Rate 70 Pulse Rate [Finger] 62 Pulse Rate [Left Apical] 70 Respiratory Rate 16 19 Respiratory Effort / Characteristics Non-Labored Spontaneous Non-Labored Spontaneous Respiratory Depth Normal Normal Respiratory Pattern Regular Regular Blood Pressure Blood Pressure [Left Arm] 112/63 108/68 Blood Pressure Mean Blood Pressure Mean [Left Arm] 79 81 Blood Pressure Position [Left Arm] Semi-fowlers Pulse Oximetry 100 100 Oxygen Delivery Method Room Air Room Air Sepsis Recent Fever Within 48 Hours Sepsis New/Unexplained Change in Mental Status Sepsis Action Taken by Nursing 11/28/23 19:30 11/28/23 20:00 Temperature Temperature Source Pulse Rate 68 70 Pulse Rate [Finger] Pulse Rate [Left Apical] Respiratory Rate 16 19 Respiratory Effort / Characteristics Respiratory Depth Respiratory Pattern Blood Pressure Blood Pressure [Left Arm] Blood Pressure Mean Blood Pressure Mean [Left Arm] Blood Pressure Position [Left Arm] Pulse Oximetry 98 99 Oxygen Delivery Method Room Air Room Air Sepsis Recent Fever Within 48 Hours Sepsis New/Unexplained Change in Mental Status Sepsis Action Taken by Nursing Laboratory Data 11/28/23 17:12 11/28/23 17:12 Lab Results 11/28/23 Range/Units 17:12 WBC 7.97 (4.8-10.8) K/ul RBC 3.48 L (4.20-5.40) M/uL Hgb 11.4 L (12.0-16.0) g/dl Hct 33.5 L (37.0-47.0) % MCV 96.3 (80.0-100.0) fL MCH 32.8 (25.0-34.0) pg MCHC 34.0 (32.0-36.0) g/dL RDW Std Deviation 43.8 (36.4-46.3) fL RDW Coeff of [place] 12.5 (11.5-14.5) % Plt Count 313 (130-400) K/uL MPV 9.7 (9.4-12.4) fL Immature Gran % (Auto) 0.4 % Neut % (Auto) 72.4 % Lymph % (Auto) 16.1 % [place] % (Auto) 10.9 % Eos % (Auto) 0.1 % Baso % (Auto) 0.1 % Neut # (Auto) 5.77 (1.40-6.50) K/uL Lymph # (Auto) 1.28 (1.20-3.40) K/uL [place] # (Auto) 0.87 H (0.11-0.59) K/uL Eos # (Auto) 0.01 (0.00-0.50) K/uL Baso # (Auto) 0.01 (0.00-0.20) K/uL Immature Gran # (Auto) 0.03 (0.01-0.20) K/uL Sodium 135 L (136-145) mmol/L Potassium 3.8 (3.5-5.1) mmol/L Chloride 104 (98-107) mmol/L Carbon Dioxide 24 (21-32) mmol/L Anion Gap 7 (3-11) BUN 19 (6-23) mg/dl Creatinine 0.91 (0.6-1.2) mg/dl Est Cr Clr Drug Dosing 92.8 ml/min Est GFR ( Amer) 94.1 ml/min Est GFR (Non-Af Amer) 81.2 ml/min BUN/Creatinine Ratio 20.9 H (10-20) Glucose 99 (70-99(Fasting)) mg/dl Calcium 9.6 (8.6-10.3) mg/dl Total Bilirubin 0.3 (0.2-1.0) mg/dl AST 66 H (13-39) U/L ALT 125 H (7-52) U/L Alkaline Phosphatase 163 H (34-104) U/L Total Protein 8.1 (6.0-8.3) gm/dl Albumin 4.1 (3.4-5.0) gm/dl Globulin 4.0 (2.5-4.0) gm/dl Albumin/Globulin Ratio 1.0 (0.9-2) Administered Medications Discontinued Medications Sodium Chloride (Nss) 1,000 mls @ 999 mls/hr IV .Q1H1M ONE Stop: 11/28/23 18:14 Last Admin: 11/28/23 18:02 Dose: 999 mls/hr Documented By: CHRIS Ceftriaxone Sodium (Rocephin) 2,000 mg in 50 mls @ 100 mls/hr IV NOW STA Stop: 11/28/23 17:43 Last Infusion: 11/28/23 18:31 Dose: Infused Documented By: Admin: 11/28/23 18:02 Dose: 100 mls/hr Documented By: CHRIS Vancomycin HCl 1,500 mg/ (Sodium Chloride) 530 mls @ 200 mls/hr IV NOW ONE Stop: 11/28/23 19:52 Last Admin: 11/28/23 18:31 Dose: 200 mls/hr Documented By: CHRIS Discharge Plan Visit Data Chief Complaint: Referred by Doctor Stated Complaint: DOCTOR REFERRED ED Provider: Philippe Knapp Discharge Problem: Cellulitis of right breast, Acute breast pain, Anemia Patient Disposition: Admitted As Inpatient Discharge Instructions Interventions: ED Discharge Assessment Last Done: 11/28/23 20:49 Forms Stand Alone Forms: [facility] [place] [employer] Prescriptions Prescriptions: No Action anastrozole 1 mg tablet 1 mg PO QAM Zoladex 3.6 mg implant 3.6 mg subcut Q28D zoledronic acid 4 mg/5 mL solution 4 mg IV .q 6 months ciprofloxacin HCl 250 mg tablet 250 mg PO BID 10 Days Qty: 20 0RF sulfamethoxazole-trimethoprim [Bactrim DS] 800-160 mg tablet 1 tab PO BID 10 Days Qty: 20 0RF olanzapine 2.5 mg tablet 2.5 mg PO UD Rx Instructions: take at 1 tablet bedtimwe for 4 days starting day 1 of chemotherapy for nausea Referrals Referrals: Helena Escobar DO [Primary Care Provider] - Discharge Problem: Anemia Qualifiers: Anemia type: unspecified type Qualified Code(s): D64.9 - Anemia, unspecified
[2023-11-28 17:41] LABS: Basophils # (auto) 0.01 K/uL (0.00-0.20); Basophils % (auto) 0.1 %; Eosinophils # (auto) 0.01 K/uL (0.00-0.50); Eosinophils % (auto) 0.1 %; Hematocrit (blood only) 33.5 % (37.0-47.0); Hemoglobin 11.4 g/dl (12.0-16.0); Immature Granulocytes # (auto) 0.03 K/uL (0.01-0.20); Immature Granulocytes % (auto) 0.4 %; Lymphocytes # (auto) 1.28 K/uL (1.20-3.40); Lymphocytes % (auto) 16.1 %; Mean Corpuscular Hemoglobin 32.8 pg (25.0-34.0); Mean Corpuscular Volume 96.3 fL (80.0-100.0); Mean Platelet Volume 9.7 fL (9.4-12.4); Monocytes # (auto) 0.87 K/uL (0.11-0.59); Monocytes % (auto) 10.9 %; Neutrophils # (auto) 5.77 K/uL (1.40-6.50); Neutrophils % (auto) 72.4 %; Platelet Count 313 K/uL (130-400); RDW Coefficient of Variation 12.5 % (11.5-14.5); RDW Standard Deviation 43.8 fL (36.4-46.3); Red Blood Count 3.48 M/uL (4.20-5.40); White Blood Count 7.97 K/ul (4.8-10.8)
[2023-11-28 17:58] LABS: Albumin Level 4.1 gm/dl (3.4-5.0); BUN Creatinine Ratio 20.9 (10-20); Bilirubin,Total 0.3 mg/dl (0.2-1.0); Calcium 9.6 mg/dl (8.6-10.3); Creatinine Clr Calc Pharmacy 92.8 ml/min; Est GFR (African American) 94.1 ml/min; Est GFR (Non-African American) 81.2 ml/min; Potassium 3.8 mmol/L (3.5-5.1); Total Protein 8.1 gm/dl (6.0-8.3)
[2023-11-28] MEDS: SODIUM CHLORIDE 0.9% 1,000 ML IV ONE (18:02)
[2023-11-28] MEDS: cefTRIAXone SODIUM 2,000 MG/50 ML BAG IV STA (18:02)
[2023-11-28] MEDS ORDERED: ALUMINUM/MAGNESIUM SUSP 30 ML UDC PO PRN (18:07)
[2023-11-28] MEDS ORDERED: ACETAMINOPHEN 325 MG TAB PO PRN (18:07)
[2023-11-28] MEDS ORDERED: ONDANSETRON INJ 2 MG/ML 2 ML VIAL IV PRN (18:07)
[2023-11-28] MEDS ORDERED: MELATONIN 3 MG TAB PO PRN (18:07)
[2023-11-28] MEDS ORDERED: POLYETHYLENE (MIRALAX) 17 GM PACK PO PRN (18:07)
[2023-11-28] MEDS ORDERED: MoRPHine SULFATE 2 MG/ML CARP IV PRN (18:11)
[2023-11-28] MEDS: VANCOMYCIN HCL 1,500 MG in SODIUM CHLORIDE 0.9% 500 ML IV ONE (18:31)
--- NOTE | 2023-11-28 19:22 | History & Physical Report ---
Date of Service November 28, 2023 Assessment & Plan (1) Cellulitis: Plan: right breast cellulitis, she had outpatient CT chest no evidence of abscess, overall disease progression started on IV Vancomycin monitor for response (2) Metastatic breast cancer: Plan: s/p chemo yesterday follow up with oncology as outpatient History of Present Illness Chief Complaint: right breast swelling, erythema Primary Care Provider: Helena Escobar DO 38-year-old female with history of metastatic breast cancer, lung metastasis diagnosed in 2021, status post bilateral mastectomy, history of implants, history of radiation ,she is on chemotherapy every 3 weeks, last chemo yesterday, she was evaluated by plastic surgeon on November 23, noticed right breast redness and swelling, started on Cipro and Bactrim, her symptoms improved since antibiotics were started, she underwent chemo yesterday and reports worsening of her symptoms, she was sent to ER for further evaluation and treatment. She denies fever or chills, she has some minimal erythema of her right breast, swelling. She has erythema of her neck and face, consistent with sunburn. In the ER she started on ceftriaxone and vancomycin. Allergies Allergy/AdvReac Type Severity Reaction Status Date / Time aluminum Allergy Mild itching Verified 11/27/23 08:06 nickel Allergy Mild Rash Verified 11/27/23 08:06 Home Medications Medication Instructions Recorded Confirmed Type anastrozole 1 mg tablet 1 mg PO QAM 12/18/22 11/28/23 History goserelin 3.6 mg subcutaneous 3.6 mg subcut Q28D 02/04/23 11/27/23 History implant (Zoladex) zoledronic acid 4 mg/5 mL 4 mg IV .q 6 months 07/01/23 11/28/23 History intravenous solution ciprofloxacin HCl 250 mg tablet 250 mg PO BID 10 days #20 tabs 11/24/23 11/28/23 Rx sulfamethoxazole 800 1 tab PO BID 10 days #20 tabs 11/24/23 11/28/23 Rx mg-trimethoprim 160 mg tablet (Bactrim DS) olanzapine 2.5 mg tablet 2.5 mg PO UD 11/28/23 11/28/23 History Past Med/Surg History Problem List (Updated 11/28/23 @ 19:31 by Dorothy Dallas MD) Cellulitis Routine gynecological examination Current smoker Multiple pulmonary nodules Pre-op testing Malignant neoplasm of upper-outer quadrant of right breast in female, estrogen receptor positive (Chronic 04/19/22) Encounter for breast reconstruction following mastectomy S/P mastectomy, bilateral History of breast cancer surgery/radiation/chemo Metastatic breast cancer Right, diagnosis 04/2022>chemo therapy (every 3 weeks) spread to lungs/reason for chemo currently Medical History Port-A-Cath in place Surgical History History of lung biopsy History of breast biopsy (06/12/22) History of bilateral mastectomy (11/21/22) History of wisdom tooth extraction Hx of lymph node excision (2014) History of removal of cyst Family History Father No problems noted. Mother No problems noted. Sister No problems noted. Sister No problems noted. Aunt Breast cancer Brother No problems noted. Son No problems noted. Uncle Lung cancer Other No family history of adverse response to anesthesia Denies family history of Ovarian cancer Prostate cancer Myocardial infarction Colorectal cancer Social History Smoking Status: Former smoker Tobacco Type: Cigarettes Cigarettes Per Day: 5; Second Hand Exposure: No; Do You Dip or Chew Tobacco: No; Hx Alcohol Use: Yes Alcohol type: beer Hx Substance Use: No Preferred Language: Slovak Communication Ability: Effective Visual Impairment: Limited Hearing Ability: Normal Lab Coordinator Required: No Beliefs That Will Affect Care: None marital status: Current Living Situation: Family Current Living Situation Comment: and son current occupational status: employed How many Children do You have: 1 Feels Safe at Home: Yes Childhood Exposure to Second-Hand Smoke: No Diet: regular caffeine: Yes during the past year weight has: remained stable Dental Care, Regularly: Yes Physical Activity Frequency: Daily Seatbelt Use: always Sunscreen Use: Yes Assistive Devices: Contacts and Glasses Review of Systems Review of Systems: All systems reviewed & are unremarkable except as noted in Subjective Results & Data Results & Data Vital Signs (Past 12 Hours) Vital Signs Temp Pulse Pulse Pulse Resp BP BP 11/28/23 19:08 70 19 108/68 11/28/23 18:15 70 11/28/23 17:54 62 16 112/63 11/28/23 17:54 68 14 11/28/23 16:53 64 18 119/76 11/28/23 16:01 36.5 C 77 20 122/78 Pulse Ox O2 Del Method 11/28/23 19:08 100 Room Air 11/28/23 18:15 11/28/23 17:54 100 Room Air 11/28/23 17:54 Room Air 11/28/23 16:53 100 Room Air 11/28/23 16:01 100 Room Air Laboratory Results Abnormal lab results 11/28/23 Range/Units 17:12 RBC 3.48 L (4.20-5.40) M/uL Hgb 11.4 L (12.0-16.0) g/dl Hct 33.5 L (37.0-47.0) % [place] # (Auto) 0.87 H (0.11-0.59) K/uL Sodium 135 L (136-145) mmol/L BUN/Creatinine Ratio 20.9 H (10-20) AST 66 H (13-39) U/L ALT 125 H (7-52) U/L Alkaline Phosphatase 163 H (34-104) U/L Code Status & VTE Plan Code Status full PG Care Time/CCT Total # of Minutes Spent Total Time Spent with Patient: Total time spent is greater than 50% in coordination of care (as documented) at patient's floor/unit and/or counseling patient: Coding Level of Care Code 21520 INT INP/OBS CARE 3/75MIN Diagnoses Cellulitis L03.90 Metastatic breast cancer C50.919
--- NOTE | 2023-11-28 20:30 | Surgery Consultation ---
Date of Consultation November 28, 2023 Assessment & Plan (1) Metastatic breast cancer: (2) S/P mastectomy, bilateral: (3) Cellulitis of right breast: 38-year-old female approximately 1 year s/p Bilateral Mastectomy with Immediate Bilateral Breast Reconstruction with increasing redness of right breast that was initially responding to outpatient PO Cipro and Bactrim but is now moving up chest into neck and face. 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 Patient admitted to hospitalist service for inpatient IV antibiotics. She has been started on Vancomycin. Infectious Disease consult placed. Recommend Oncology consultation as redness did increase following chemotherapy treatment . Dr. Thompson has been made aware of patient's admission. Dr. Mills has been made aware of plan and will be in tomorrow AM to see patient. History of Present Illness History of Present Illness Gorge is a 38-year-old female who is approximately 1 year s/p Bilateral Mastectomy with Dr. Thompson with Immediate Bilateral Breast Reconstruction with Dr. Mills. Right breast has been radiated and lymph nodes have been removed. Gorge has continued to follow closely with our office over the course of the last year and is planning bilateral breast implant exchange with silicone breast implants at the end of November. She called our office earlier in the week to report pain, low grade fevers and redness of right breast. She was seen in our office by Naomi Perez PA-C, myself and Dr. Mills. Gorge could not identify any cause for infection other than a small cut on her right hand from outside gardening. She was immediately started on both Ciprofloxacin and Bactrim with follow-up in our office yesterday. Prior to her coming to our office yesterday, Gorge did see Dr. Jimenez for chemotherapy treatment. Dr. Jimenez did state that chemotherapy could possibly flare-up redness of the breast once again. When Gorge was seen the office by myself yesterday, redness was greatly improved. She denied any fevers and was feeling well. This morning, our office received a portal message with an attached photo showing that the redness had returned and was now, in fact, worse than earlier in the week. Gorge reports that she woke up this morning with increasing redness of her right breast. She initially thought that it was just due to sleeping on her right side, but as the morning progressed, the redness continued to spread and had moved beyond the marked area of cellulitis up to her neck and face. She did have a chest CT earlier in the day that did not show the presence of an abscess. Gorge was advised to report to ED for admission, Infectious Disease consultation, and IV antibiotics. Labwork in ED shows WBC 7.97, which is an increase from 3.02 (11/25). Allergies Allergy/AdvReac Type Severity Reaction Status Date / Time aluminum Allergy Mild itching Verified 11/27/23 08:06 nickel Allergy Mild Rash Verified 11/27/23 08:06 Home Medications Medication Instructions Recorded Confirmed Type anastrozole 1 mg tablet 1 mg PO QAM 12/18/22 11/28/23 History goserelin 3.6 mg subcutaneous 3.6 mg subcut Q28D 02/04/23 11/27/23 History implant (Zoladex) zoledronic acid 4 mg/5 mL 4 mg IV .q 6 months 07/01/23 11/28/23 History intravenous solution ciprofloxacin HCl 250 mg tablet 250 mg PO BID 10 days #20 tabs 11/24/23 11/28/23 Rx sulfamethoxazole 800 1 tab PO BID 10 days #20 tabs 11/24/23 11/28/23 Rx mg-trimethoprim 160 mg tablet (Bactrim DS) olanzapine 2.5 mg tablet 2.5 mg PO UD 11/28/23 11/28/23 History Patient History Medical History Port-A-Cath in place Surgical History History of lung biopsy History of breast biopsy (06/12/22) History of bilateral mastectomy (11/21/22) History of wisdom tooth extraction Hx of lymph node excision (2014) History of removal of cyst Family History Father No problems noted. Mother No problems noted. Sister No problems noted. Sister No problems noted. Aunt Breast cancer Brother No problems noted. Son No problems noted. Uncle Lung cancer Other No family history of adverse response to anesthesia Denies family history of Ovarian cancer Prostate cancer Myocardial infarction Colorectal cancer Social History Smoking Status: Former smoker Tobacco Type: Cigarettes Cigarettes Per Day: 5; Second Hand Exposure: No; Do You Dip or Chew Tobacco: No; Hx Alcohol Use: Yes Alcohol type: beer Hx Substance Use: No Preferred Language: Uzbek Communication Ability: Effective Visual Impairment: Limited Hearing Ability: Normal Events Director Required: No Beliefs That Will Affect Care: None marital status: Current Living Situation: Family Current Living Situation Comment: and son current occupational status: employed How many Children do You have: 1 Feels Safe at Home: Yes Childhood Exposure to Second-Hand Smoke: No Diet: regular caffeine: Yes during the past year weight has: remained stable Dental Care, Regularly: Yes Physical Activity Frequency: Daily Seatbelt Use: always Sunscreen Use: Yes Assistive Devices: Contacts and Glasses Review of Systems Constitutional: as per Subjective / HPI; no fever and no chills Respiratory: no cough and no dyspnea Cardiovascular: no chest pain Physical Exam Physical Exam: Erythema of right breast that extends beyond marked area of redness from Friday. Erythema spreads up the chest to her neck and right side of face continuously. Skin is warm to the touch. Constitutional: WD/WN, vitals as above Respiratory: normal respiratory effort; no respiratory distress and no labored breathing Results & Data Vital Signs (Past 12 Hours) Vital Signs Temp Pulse Pulse Pulse Resp BP BP 11/28/23 19:08 70 19 108/68 11/28/23 18:15 70 11/28/23 17:54 62 16 112/63 11/28/23 17:54 68 14 11/28/23 16:53 64 18 119/76 11/28/23 16:01 36.5 C 77 20 122/78 Pulse Ox O2 Del Method 11/28/23 19:08 100 Room Air 11/28/23 18:15 11/28/23 17:54 100 Room Air 11/28/23 17:54 Room Air 11/28/23 16:53 100 Room Air 11/28/23 16:01 100 Room Air PG Care Time/CCT Total # of Minutes Spent Total Time Spent with Patient: Total time spent is greater than 50% in coordination of care (as documented) at patient's floor/unit and/or counseling patient: Coding Level of Care Code 43730 IN/OBS CONSULT LVL 3,45M Diagnoses Metastatic breast cancer C50.919 S/P mastectomy, bilateral Z90.13 Cellulitis of right breast N61.0
[2023-11-28] MEDS ORDERED: diphenhydrAMINE 50 MG/ML VIAL IV PRN (21:42)
[2023-11-28] MEDS: DAPTOmycin 375 MG in SYRINGE 0 ML IV SCH (22:14)
[2023-11-28] MEDS: PIPERACILLIN/TAZOBACTAM 4.5 GM in DEXTROSE 5% MINI-B 100 ML IV ONE (22:14)
[2023-11-28] MEDS: LACTATED RINGER'S 1,000 ML IV SCH (22:56)
[2023-11-29] MEDS ORDERED: VANCOMYCIN HCL 1,250 MG in SODIUM CHLORIDE 0.9% 250 ML IV SCH
[2023-11-29] MEDS: PIPERACILLIN/TAZOBACTAM 4.5 GM in DEXTROSE 5% MINI-B 100 ML IV SCH (03:59)
[2023-11-29 06:46] LABS: Basophils # (auto) 0.02 K/uL (0.00-0.20); Basophils % (auto) 0.5 %; Eosinophils # (auto) 0.02 K/uL (0.00-0.50); Eosinophils % (auto) 0.5 %; Hematocrit (blood only) 30.5 % (37.0-47.0); Hemoglobin 10.2 g/dl (12.0-16.0); Immature Granulocytes # (auto) 0.01 K/uL (0.01-0.20); Immature Granulocytes % (auto) 0.2 %; Lymphocytes # (auto) 0.94 K/uL (1.20-3.40); Mean Corpuscular Hemoglobin 32.3 pg (25.0-34.0); Mean Corpuscular Hgb Conc 33.4 g/dL (32.0-36.0); Mean Corpuscular Volume 96.5 fL (80.0-100.0); Mean Platelet Volume 9.6 fL (9.4-12.4); Monocytes % (auto) 7.4 %; Neutrophils # (auto) 2.79 K/uL (1.40-6.50); Neutrophils % (auto) 68.4 %; Platelet Count 243 K/uL (130-400); RDW Coefficient of Variation 12.5 % (11.5-14.5); RDW Standard Deviation 44.3 fL (36.4-46.3); Red Blood Count 3.16 M/uL (4.20-5.40); White Blood Count 4.08 K/ul (4.8-10.8)
[2023-11-29 07:15] LABS: Albumin Level 3.3 gm/dl (3.4-5.0); BUN Creatinine Ratio 17.5 (10-20); Bilirubin,Total 0.3 mg/dl (0.2-1.0); Calcium 8.6 mg/dl (8.6-10.3); Creatinine Clr Calc Pharmacy 106.1 ml/min; Est GFR (African American) 109.9 ml/min; Est GFR (Non-African American) 94.9 ml/min; Globulin 3.2 gm/dl (2.5-4.0); Magnesium 2.2 mg/dl (1.7-2.4); Potassium 3.6 mmol/L (3.5-5.1); Total Protein 6.5 gm/dl (6.0-8.3)
--- NOTE | 2023-11-29 09:10 | Surgery Progress Note ---
Date of Service November 29, 2023 Assessment & Plan (1) Metastatic breast cancer: (2) S/P mastectomy, bilateral: (3) Cellulitis of right breast: Plan: Patient seen and examined with Dr. Mills. Vital signs stable overnight, she remains afebrile. Dr. Pollock changed IV abx from Vanvo to Dapto and Zosyn. She has had an excellent response. Overnight, cellulitis of right breast significantly improved. Redness of neck and face resolved. ID consult still pending. Will need outpatient abx recommendations. Ideally, patient would like to be discharged to home today. Hopeful that this can happen. Discussed briefly surgical plan moving forward- will keep plan to exchange breast implants at end of November. In the meantime, Gorge is seeing Oncologist for second opinion in [place]. She will find out chemotherapy plan and will update us. Plan Patient seen and examined with Zahra Thompson PA-C, agree with above. Patient is feeling well. Erythema now nearly resolved after IV abx. Outpatient antibiotic recommendations pending. Surgical plans will depend on chemo plan and continued response to abx. We will follow up with her post discharge. Admission and Anticipated Discharge Date Admission Date: November 28, 2023 Subjective Gorge is resting comfortably in bed- she reports that she continues to feel well and that redness had significantly improved overnight. Dr. Pollock did change her IV meds from Vanco to Dapto and Zosyn. No fevers or chills overnight. Review of Systems Constitutional: as per Subjective / HPI; no fever and no chills Respiratory: no cough and no dyspnea Cardiovascular: no chest pain Physical Exam Physical Exam: Erythema of face and neck has resolved. Erythema of right breast is significantly faded. Constitutional: WD/WN, vitals as above Respiratory: normal respiratory effort; no respiratory distress and no labored breathing Results & Data Vital Signs (Past 12 Hours) Vital Signs Temp Pulse Resp BP Pulse Ox O2 Del Method 11/29/23 08:07 36.6 C 68 16 97/60 L 98 Room Air 11/28/23 22:00 36.7 C 73 16 133/80 99 Room Air PG Care Time/CCT Total # of Minutes Spent Total Time Spent with Patient: Total time spent is greater than 50% in coordination of care (as documented) at patient's floor/unit and/or counseling patient: Coding Level of Care Code 20580 SUB INP/OBS CARE MIN Diagnoses Metastatic breast cancer C50.919 S/P mastectomy, bilateral Z90.13 Cellulitis of right breast N61.0
[2023-11-29] MEDS: ENOXAPARIN INJ 40 MG/0.4 ML SYR SQ SCH (09:47)
--- NOTE | 2023-11-29 11:19 | Discharge Summary ---
Date of Service November 29, 2023 Admission HPI Per Admitting Provider 38-year-old female with history of metastatic breast cancer, lung metastasis diagnosed in 2021, status post bilateral mastectomy, history of implants, history of radiation ,she is on chemotherapy every 3 weeks, last chemo yesterday, she was evaluated by plastic surgeon on November 23, noticed right breast redness and swelling, started on Cipro and Bactrim, her symptoms improved since antibiotics were started, she underwent chemo yesterday and reports worsening of her symptoms, she was sent to ER for further evaluation and treatment. She denies fever or chills, she has some minimal erythema of her right breast, swelling. She has erythema of her neck and face, consistent with sunburn. In the ER she started on ceftriaxone and vancomycin. Principal Diagnosis Right breast cellulitis Discharge Exam The patient is awake, alert and oriented 3, well developed and well nourished, normocephalic and atraumatic, lying in bed and in no acute distress. HEENT--PERRL, EOMI, mucous membranes and oropharynx mildly dry Neck--supple. No JVD. No bruits. Thyroid normal, trachea midline, no adenopathy. Heart--normal S1 and S2. No murmurs, rubs or gallops. Lungs--clear bilaterally, no respiratory distress, no accessory muscle use. Abdomen--normal bowel sounds and soft. Extremities--no cyanosis or clubbing. No edema. Dermatologic--normal skin turgor, normal color, no abnormal lymph nodes, no rash. Neurologic--cranial nerves II through XII grossly intact. Rheumatologic--normal range of motion. Psychiatric--normal affect. Discharge Data Allergies Allergy/AdvReac Type Severity Reaction Status Date / Time aluminum Allergy Mild itching Verified 11/27/23 08:06 nickel Allergy Mild Rash Verified 11/27/23 08:06 Consultations 11/28/23 17:15 ED Decision to Admit Stat 11/28/23 20:18 Consult Infectious Diseases Routine 11/28/23 21:44 Consult Plastic Surgery Routine Hospital Course (1) Cellulitis: Nonpurulent cellulitis of the right breast Started on IV vancomycin and Zosyn Much improved Patient says she wants to be discharged home. Will discharge her on p.o. cephalexin 500 mg twice daily for 7 days (2) Metastatic breast cancer: s/p chemo yesterday follow up with oncology as outpatient Plan d/c home Total Time Total Time Spent Total Time Spent (In Minutes): 35 Discharge Plan Discharge Items Patient Disposition: Home - Self-Care Reason For Visit: CELLULITIS Discharge Diagnosis: cellulitis Activity: Resume your previous activity Non-emergency contact: Primary Care Provider and Oncologist Call non-emergency contact if: you have any medication questions Follow-up/Referrals: Helena Escobar, [Primary Care Provider] - Diet: Regular Addtl Attending Provider Instructions: Please make appointment to follow-up with your regular doctors Pending Studies at Discharge: No Stand-Alone Forms: [facility] HealthyOut, Smoking Cessation Medications and DC Order Prescriptions: New cephalexin 500 mg capsule 500 mg PO BID 7 Days Qty: 14 0RF anastrozole 1 mg tablet 1 mg PO DAILY Qty: 30 0RF Continued Zoladex 3.6 mg implant 3.6 mg subcut Q28D zoledronic acid 4 mg/5 mL solution 4 mg IV .q 6 months olanzapine 2.5 mg tablet 2.5 mg PO UD Rx Instructions: take at 1 tablet bedtimwe for 4 days starting day 1 of chemotherapy for nausea Discontinued anastrozole 1 mg tablet 1 mg PO QAM ciprofloxacin HCl 250 mg tablet 250 mg PO BID 10 Days Qty: 20 0RF sulfamethoxazole-trimethoprim [Bactrim DS] 800-160 mg tablet 1 tab PO BID 10 Days Qty: 20 0RF Discharge Orders: Discharge Order (Routine); Ordered 11/29/23 Ordered By: Fernando Olvera Admission Data Admit Date/Time: 11/28/23 18:07 Attending Provider: Fernando Olvera Admit Provider: Dorothy Dallas Primary Care Provider: Helena Escobar Other Providers: Kavitha Cota; Meche Cornell; Maribel Stock; Tu Lee; Yoselin Calderon; Delmi Mota; Dorothy Dallas; Patricia Mills Coding Level of Care Code 82640 INP/OBS DISCH >30 MIN Diagnoses Cellulitis L03.90 Metastatic breast cancer C50.919 Time Spent (min) 35
== END 2023-11-29 13:34 | disposition home or self-care (01) ==
LOC: ED 15:57 → 3W 18:07 → SUATTDRO 18:07 → INTOOBSV 18:07 → 3W 20:49